=== PATIENT | female | born 1970 | race American Indian/Alaskan Native ===

== ENCOUNTER 2019-12-13 10:48 | Emergency (ER) | payer MEDICAID ==
[2019-12-13] MEDS ORDERED: ONDANSETRON 4 MG/2 ML INJ IV ONE (10:57)
[2019-12-13] MEDS ORDERED: KETOROLAC 30 MG/1 ML INJ IV ONE (10:57)
[2019-12-13] MEDS ORDERED: SODIUM CHLORIDE 0.9% 1000 ML 1,000 ML IV ONE (10:57)
--- NOTE | 2019-12-13 11:04 | Emergency Department Report ---
ED General Adult HPI - General Stated complaint: AMS/ALCOHOL/UNKNOWN SUBSTANCE Time Seen by Provider: 12/13/19 10:56 - History of Present Illness Initial comments: Patient is a 49-year-old F Citizen Of [place] female who is presenting with left ankle pain as well as some altered mental status. Apparently the patient was drinking heavily last night with some friends from out of town and may have consumed 1 or more cannabis Gummies. Patient was found in a car with the door open unable to get out secondary to being altered and also some pain in her left ankle. Patient is states her pain is a 10 out of 10 in the left ankle and left knee. Patient is having a difficult time giving a full history secondary to repeatedly falling asleep. - Related Data Previous Rx's Medication Instructions Recorded Last Taken Type Oxycodone HCl/Acetaminophen 1 each PO Q6HR PRN #14 tablet 08/01/19 Unknown Rx [Percocet 10/325 mg] Nitrofurantoin [place]gs/M-Cryst 100 mg PO Q12HR #14 capsule 08/29/19 Unknown Rx [Macrobid CAP] Ondansetron [Zofran Odt] 4 mg PO Q8HR PRN #14 tab.rapdis 08/29/19 Unknown Rx Phenazopyridine [Pyridium] 100 mg PO TID #14 tab 08/29/19 Unknown Rx traMADoL [Ultram 50 MG tab] 50 mg PO Q4HR PRN #14 tablet 08/29/19 Unknown Rx HYDROcodone/APAP 5-325 [[place] 1 each PO Q6HR PRN #10 tablet 12/13/19 Unknown Rx 5/325] Ketorolac [Toradol] 10 mg PO Q6H PRN #12 tablet 12/13/19 Unknown Rx Allergies Allergy/AdvReac Type Severity Reaction Status Date / Time latex Allergy Shortness Verified 08/29/19 18:33 of Breath metoclopramide [From Reglan] Allergy Rash Verified 08/29/19 18:33 prochlorperazine Allergy Rash Verified 08/29/19 18:33 [From Compazine] Sulfa (Sulfonamide Allergy Anaphylaxis Verified 08/29/19 18:33 Antibiotics) ED Review of Systems ROS: Stated complaint: AMS/ALCOHOL/UNKNOWN SUBSTANCE Other details as noted in HPI Comment: All other systems reviewed and negative ED Past Medical Hx - Past Medical History Hx Diabetes: Yes Additional medical history: Bowel obstruction. Elevated cholesterol. Chronic back pain. Kidney stones - Surgical History Hx Appendectomy: Yes Additional Surgical History: Bilateral oophorectomy and bilateral salpingectomy. Bowel obstruction surgery. Hernia repair. Patient is unsure if she has had a cholecystectomy,hysterectomy - Social History Smoking Status: Current Every Day Smoker Substance Use Type: None - Medications Home Medications: Home Medications Medication Instructions Recorded Confirmed Last Taken Type Oxycodone HCl/Acetaminophen 1 each PO Q6HR PRN #14 tablet 08/01/19 Unknown Rx [Percocet 10/325 mg] Nitrofurantoin [place]/M-Cryst 100 mg PO Q12HR #14 capsule 08/29/19 Unknown Rx [Macrobid CAP] Ondansetron [Zofran Odt] 4 mg PO Q8HR PRN #14 tab.rapdis 08/29/19 Unknown Rx Phenazopyridine [Pyridium] 100 mg PO TID #14 tab 08/29/19 Unknown Rx traMADoL [Ultram 50 MG tab] 50 mg PO Q4HR PRN #14 tablet 08/29/19 Unknown Rx HYDROcodone/APAP 5-325 [[place] 1 each PO Q6HR PRN #10 tablet 12/13/19 Unknown Rx 5/325] Ketorolac [Toradol] 10 mg PO Q6H PRN #12 tablet 12/13/19 Unknown Rx ED Physical Exam - General General appearance: alert, lethargic (Patient does awake and with talking. But falls asleep mid sentence) - Head Head exam: Present: atraumatic, normocephalic - Eye Eye exam: Present: normal appearance, PERRL, EOMI - ENT ENT exam: Present: mucous membranes moist - Neck Neck exam: Present: normal inspection - Respiratory Respiratory exam: Present: normal lung sounds bilaterally. Absent: respiratory distress, wheezes, rales, rhonchi - Cardiovascular Cardiovascular Exam: Present: regular rate, normal rhythm, normal heart sounds. Absent: systolic murmur, diastolic murmur, rubs, gallop - GI/Abdominal GI/Abdominal exam: Present: soft, normal bowel sounds. Absent: distended, tenderness, guarding - Extremities Exam Extremities exam: Present: normal inspection - Expanded Lower Extremity Exam Left Knee exam: Present: tenderness. Absent: full ROM, swelling Lower Leg exam: Present: normal inspection Ankle exam: Present: tenderness, swelling. Absent: laceration, ecchymosis, deformity, dislocation - Back Exam Back exam: Present: normal inspection - Neurological Exam Neurological exam: Present: alert, oriented X3 - Psychiatric Psychiatric exam: Present: normal affect, normal mood - Skin Skin exam: Present: warm, dry, intact, normal color. Absent: rash ED Course Vital Signs 12/13/19 11:15 Temperature 98.2 F Pulse Rate 94 H Respiratory 21 Rate Blood Pressure 126/79 O2 Sat by Pulse 100 Oximetry ED Medical Decision Making - Lab Data Result diagrams: 12/13/19 11:03 12/13/19 11:03 Lab Results 12/13/19 12/13/19 12/13/19 Range/Units 11:03 11:03 11:03 WBC 11.9 H (4.5-11.0) K/mm3 RBC 4.89 (3.65-5.03) M/mm3 Hgb 15.6 H (10.1-14.3) gm/dl Hct 45.9 H (30.3-42.9) % MCV 94 (79-97) fl MCH 32 (28-32) pg MCHC 34 (30-34) % RDW 14.9 (13.2-15.2) % Plt Count 253 (140-440) K/mm3 Lymph % (Auto) 23.4 (13.4-35.0) % [place] % (Auto) 6.9 (0.0-7.3) % Eos % (Auto) 1.9 (0.0-4.3) % Baso % (Auto) 0.8 (0.0-1.8) % Lymph # (Auto) 2.8 (1.2-5.4) K/mm3 [place] # (Auto) 0.8 (0.0-0.8) K/mm3 Eos # (Auto) 0.2 (0.0-0.4) K/mm3 Baso # (Auto) 0.1 (0.0-0.1) K/mm3 Seg Neutrophils % 67.0 (40.0-70.0) % Seg Neutrophils # 8.0 H (1.8-7.7) K/mm3 Sodium 142 (137-145) mmol/L Potassium 3.6 (3.6-5.0) mmol/L Chloride 98.7 (98-107) mmol/L Carbon Dioxide 28 (22-30) mmol/L Anion Gap 19 mmol/L BUN 11 (7-17) mg/dL Creatinine 0.5 L (0.6-1.2) mg/dL Estimated GFR > 60 ml/min BUN/Creatinine Ratio 22 % Glucose 120 H (65-100) mg/dL Calcium 9.5 (8.4-10.2) mg/dL Urine Color (Yellow) Urine Turbidity (Clear) Urine pH (5.0-7.0) Ur Specific [place] (1.003-1.030) Urine Protein (Negative) mg/dL Urine Glucose (UA) (Negative) mg/dL Urine Ketones (Negative) mg/dL Urine Blood (Negative) Urine Nitrite (Negative) Urine Bilirubin (Negative) Urine Urobilinogen (<2.0) mg/dL Ur Leukocyte Esterase (Negative) Urine WBC (Auto) (0.0-6.0) /HPF Urine RBC (Auto) (0.0-6.0) /HPF U Epithel Cells (Auto) (0-13.0) /HPF Urine Mucus /HPF Urine HCG, Qual (Negative) Urine Opiates Screen Urine Methadone Screen Ur Barbiturates Screen Ur Phencyclidine Scrn Ur Amphetamines Screen U Benzodiazepines Scrn Urine Cocaine Screen U Marijuana (THC) Screen Drugs of Abuse Note Plasma/Serum Alcohol 0.08 H (0-0.07) % 12/13/19 12/13/19 Range/Units 12:19 12:19 WBC (4.5-11.0) K/mm3 RBC (3.65-5.03) M/mm3 Hgb (10.1-14.3) gm/dl Hct (30.3-42.9) % MCV (79-97) fl MCH (28-32) pg MCHC (30-34) % RDW (13.2-15.2) % Plt Count (140-440) K/mm3 Lymph % (Auto) (13.4-35.0) % [place] % (Auto) (0.0-7.3) % Eos % (Auto) (0.0-4.3) % Baso % (Auto) (0.0-1.8) % Lymph # (Auto) (1.2-5.4) K/mm3 [place] # (Auto) (0.0-0.8) K/mm3 Eos # (Auto) (0.0-0.4) K/mm3 Baso # (Auto) (0.0-0.1) K/mm3 Seg Neutrophils % (40.0-70.0) % Seg Neutrophils # (1.8-7.7) K/mm3 Sodium (137-145) mmol/L Potassium (3.6-5.0) mmol/L Chloride (98-107) mmol/L Carbon Dioxide (22-30) mmol/L Anion Gap mmol/L BUN (7-17) mg/dL Creatinine (0.6-1.2) mg/dL Estimated GFR ml/min BUN/Creatinine Ratio % Glucose (65-100) mg/dL Calcium (8.4-10.2) mg/dL Urine Color Yellow (Yellow) Urine Turbidity Clear (Clear) Urine pH 6.0 (5.0-7.0) Ur Specific [place] 1.010 (1.003-1.030) Urine Protein <15 mg/dl (Negative) mg/dL Urine Glucose (UA) Neg (Negative) mg/dL Urine Ketones Neg (Negative) mg/dL Urine Blood Mod (Negative) Urine Nitrite Neg (Negative) Urine Bilirubin Neg (Negative) Urine Urobilinogen 4.0 (<2.0) mg/dL Ur Leukocyte Esterase Neg (Negative) Urine WBC (Auto) 1.0 (0.0-6.0) /HPF Urine RBC (Auto) 2.0 (0.0-6.0) /HPF U Epithel Cells (Auto) 1.0 (0-13.0) /HPF Urine Mucus Few /HPF Urine HCG, Qual Negative (Negative) Urine Opiates Screen Negative Urine Methadone Screen Negative Ur Barbiturates Screen Negative Ur Phencyclidine Scrn Negative Ur Amphetamines Screen Negative U Benzodiazepines Scrn Negative Urine Cocaine Screen Positive U Marijuana (THC) Screen Positive Drugs of Abuse Note Disclamer Plasma/Serum Alcohol (0-0.07) % - Radiology Data Ordering Physician: MAGDY SHERIFF MD Date of Service: 12/13/19 Procedure(s): XR knee 3V LT Accession Number(s): [id number] cc: MAGDY SHERIFF MD Fluoro Time In Minutes: LEFT KNEE 3 VIEW INDICATION / CLINICAL INFORMATION: Left knee pain after fall. COMPARISON: None available. FINDINGS: BONES/JOINT(S): There is a linear lucency in the proximal tibia, best seen on the lateral view. The lucency appears to potentially extend into the lateral tibial spine on the frontal view. Findings are concerning for a nondisplaced proximal tibial fracture. Further evaluation with CT of the knee is recommended. Signer Name: Tad Wayne MD Signed: 12/13/2019 2:04 PM Workstation Name: [id number] Transcribed By: MCKENNA Dictated By: Tad Wayne MD Electronically Authenticated By: Tad Wayne MD Signed Date/Time: 12/13/19 1404 LEFT ANKLE 3 VIEW INDICATION / CLINICAL INFORMATION: Left ankle pain after fall. COMPARISON: None available. FINDINGS: BONES/JOINT(S): No acute fracture or subluxation. No significant degenerative changes. SOFT TISSUES: No significant abnormality. ADDITIONAL FINDINGS: None. Signer Name: Tad Wayne MD Signed: 12/13/2019 2:05 PM Workstation Name: [id number] - Medical Decision Making Patient is a 49-year-old F Citizen Of [place] female who is presenting with some lethargy status post alcohol and possible drug intoxication. Patient's laboratory studies do show that she is still intoxicated with alcohol. Her drug screen was positive for cannabis as well as cocaine. Cocaine was unexpected. Patient likely also lethargic because of potentially long cocaine binge. Patient x-ray show a nondisplaced tibial fracture approximately. Patient placed in a knee immobilizer and given crutches and she will follow-up outpatient with orthopedics. Patient given drug and alcohol rehab information. Patient was asking for additional pain medications however because of the illicit drugs in her system I did not feel comfortable giving her anything stronger than Toradol at this time but will discharge the patient with 10 Vicodin until she is able to see orthopedic surgery. Critical care attestation.: If time is entered above; I have spent that time in minutes in the direct care of this critically ill patient, excluding procedure time. ED Disposition Clinical Impression: Cocaine abuse, Marijuana abuse Tibia fracture Qualifiers: Encounter type: initial encounter Tibia location: proximal Fracture type: closed Fracture morphology: unspecified fracture morphology Laterality: left Qualified Code(s): S82.102A - Unspecified fracture of upper end of left tibia, initial encounter for closed fracture Alcohol intoxication Qualifiers: Complication of substance-induced condition: uncomplicated Qualified Code(s): F10.920 - Alcohol use, unspecified with intoxication, uncomplicated Disposition: DC-01 TO HOME OR SELFCARE Is pt being admited?: No Does the pt Need Aspirin: No Condition: Stable Instructions: Leg Fracture (ED), Crutch Instructions (ED), Cocaine Abuse (ED), Abuse of Alcohol (ED) Referrals: MANDEEP WILDER MD [Staff Physician] - 3-5 Days Time of Disposition: 14:49
[2019-12-13 11:25] LABS: Basophils # (Auto) 0.1 K/mm3 (0.0-0.1); Basophils % (Auto) 0.8 % (0.0-1.8); Eosinophils # (Auto) 0.2 K/mm3 (0.0-0.4); Eosinophils % (Auto) 1.9 % (0.0-4.3); Hematocrit 45.9 % (30.3-42.9); Hemoglobin 15.6 gm/dl (10.1-14.3); Lymphocytes # (Auto) 2.8 K/mm3 (1.2-5.4); Lymphocytes % (Auto) 23.4 % (13.4-35.0); Mean Corpuscular HGB Conc 34 % (30-34); Mean Corpuscular Volume 94 fl (79-97); Monocytes # (Auto) 0.8 K/mm3 (0.0-0.8); Monocytes % (Auto) 6.9 % (0.0-7.3); Platelet Count 253 K/mm3 (140-440); Red Blood Count 4.89 M/mm3 (3.65-5.03); Red Cell Distribution Width 14.9 % (13.2-15.2)
[2019-12-13 11:42] LABS: Blood Urea Nitrogen 11 mg/dL (7-17); Calcium 9.5 mg/dL (8.4-10.2); Hemolysis Index 10
[2019-12-13 11:45] LABS: BUN/Creatinine Ratio 22
[2019-12-13] MEDS ORDERED: KETOROLAC 60 MG/2 ML INJ IM ONE (12:16)
[2019-12-13 12:30] LABS: Bilirubin,Urine NEG (Negative); Blood,Urine MOD (Negative); Color,Urine Yellow (Yellow); Mucus,Urine FEW /HPF; Protein,Urine <15 mg/dL mg/dL (Negative)
[2019-12-13 12:35] LABS: HCG Qualitative,Urine Negative (Negative)
[2019-12-13 12:38] LABS: Amphetamine Screen,Urine Negative; Benzodiazepines Screen,Urine Negative; Methadone Screen,Urine Negative; Opiate Screen,Urine Negative
[2019-12-13] MEDS ORDERED: ONDANSETRON 4 MG/2 ML INJ IM ONE (12:41)
[2019-12-13 12:53] LABS: Cannabinoid Screen,Urine Positive; Cocaine Screen,Urine Positive
--- NOTE | 2019-12-13 14:08 | XRay Report ---
LEFT KNEE 3 VIEW INDICATION / CLINICAL INFORMATION: Left knee pain after fall. COMPARISON: None available. FINDINGS: BONES/JOINT(S): There is a linear lucency in the proximal tibia, best seen on the lateral view. The l ucency appears to potentially extend into the lateral tibial spine on the frontal view. Findings are concerning for a nondisplaced proximal tibial fracture. Further evaluation with CT of the knee is rec ommended. Signer Name: Tad Wayne MD Signed: 12/13/2019 2:04 PM Workstation Name: [id number]
--- NOTE | 2019-12-13 14:10 | XRay Report ---
LEFT ANKLE 3 VIEW INDICATION / CLINICAL INFORMATION: Left ankle pain after fall. COMPARISON: None available. FINDINGS: BONES/JOINT(S): No acute fracture or subluxation. No significant degenerative changes. SOFT TISSUES: No significant abnormality. ADDITIONAL FINDINGS: None. Signer Name: Tad Wayne MD Signed: 12/13/2019 2:05 PM Workstation Name: [id number]
[2019-12-13 16:21] VITALS: BP 114/70
== END 2019-12-13 16:25 | disposition home or self-care (01) ==
LOC: ED 10:48
DX: S82.102A Unspecified fracture of upper end of left tibia, initial encounter for closed fracture (principal); F10.129 Alcohol abuse with intoxication, unspecified; F14.10 Cocaine abuse, uncomplicated; F12.10 Cannabis abuse, uncomplicated; E11.9 Type 2 diabetes mellitus without complications; Z90.49 Acquired absence of other specified parts of digestive tract; Z90.89 Acquired absence of other organs; Z98.890 Other specified postprocedural states; Z79.899 Other long term (current) drug therapy; Z88.8 Allergy status to other drugs, medicaments and biological substances; X58.XXXA Exposure to other specified factors, initial encounter; Y93.89 Activity, other specified; Y92.89 Other specified places as the place of occurrence of the external cause; Y99.8 Other external cause status
CPT/HCPCS: 29505; 36415; 73562; 73610; 80048; 80307; 81001; 81025; 85025; 96372; 99284; J1885; J2405; J7030; 80320; G0480

== ENCOUNTER 2020-07-24 22:04 | Emergency (ER) | payer MEDICAID | END 2020-07-25 05:30 | disposition left against medical advice (07) | LOC: ED 22:04 | DX: R52 Pain, unspecified (principal); Z53.21 Procedure and treatment not carried out due to patient leaving prior to being seen by health care provider ==